=== PATIENT | female | born 1940 | race Caucasian/White ===

== ENCOUNTER 2016-11-27 11:47 | Inpatient (IN) | payer OTHER ==
[~2016-11-27] VITALS: Ht 160 cm; Wt 84.6 kg
[2016-11-27 13:03] LABS: BASO % 0.2 %; BASO ABS # 0.02 K/uL (0-0.2); COMPLETE YES; EOS % 0.7 %; IG% 0.2 %; LYMPH % 14.7 %; LYMPH ABS # 1.93 K/uL (1.2-3.4); MEAN CELL VOLUME 94.3 fL (80-100); MEAN CORPUSCULAR HGB CONC 32.9 g/dl (32-36); MEAN PLATELET VOLUME 11.1 fL (7.4-10.4); MONO % 4.8 %; NEUT % 79.4 %; PLATELET COUNT 247 K/uL (130-400); RED BLOOD COUNT 4.35 M/uL (4.2-5.4)
[2016-11-27 13:17] LABS: BUN/CREATININE RATIO 20.8 (10-20); CALCIUM 9.3 mg/dl (8.5-10.1); CREATININE 0.84 mg/dl (0.60-1.20); POTASSIUM 4.1 mmol/L (3.5-5.1)
--- NOTE | 2016-11-27 13:54 | DIAGNOSTIC IMAGING REPORT ---
CT ANGIOGRAM OF THE CHEST CLINICAL HISTORY: Right-sided chest pain, cough, tachycardia, recent 11 hour airplane flight. COMPARISON STUDY: No previous studies for comparison. TECHNIQUE: Following the IV administration of 93 mL of Optiray-320, CT angiogram of the thorax was performed from the thoracic inlet to the lung bases utilizing the pulmonary embolus protocol. Images are reviewed in the axial, sagittal, and coronal planes. IV contrast was administered without complication. MIP imaging was performed. CT DOSE: 413.04 mGycm FINDINGS: No pathologically enlarged axillary mediastinal or hilar lymph nodes were visualized. There was no evidence of thoracic aortic dilatation. There were no pulmonary artery filling defects to indicate acute pulmonary embolism. No pleural effusions are visualized. There was no evidence of focal pulmonary consolidation. IMPRESSION: 1. No CT evidence of acute pulmonary embolism 2. No evidence of focal pulmonary consolidation 3. No evidence of pathologic adenopathy Electronically signed by: Geovany Mendez M.D. 11/27/2016 1:53 PM Dictated Date/Time: 11/27/2016 1:47 PM
[2016-11-27] MEDS ORDERED: SODIUM CHLORIDE 0.9% 500ML 500 ML IV STA (14:10)
[2016-11-27 14:46] LABS: URINE APPEARANCE CLEAR (CLEAR); URINE BILIRUBIN NEG (NEG); URINE COLOR YELLOW; URINE NITRITE POS (NEG); URINE PH 6.5 (4.5-7.5); URINE SPECIFIC GRAVITY 1.017 (1.000-1.030); UROBILINOGEN NEG (NEG)
[2016-11-27 14:49] LABS: MANUAL MICROSCOPIC REQUIRED? NO; REVIEW REQ? NO
[2016-11-27] MEDS ORDERED: IMIPENEM/CILASTATIN IV 500 MG in DEXTROSE 5% 100ML 100 ML IV STA (14:59)
[2016-11-27 15:52] LABS: LYME DISEASE AB IGG NEG (NEG); LYME DISEASE AB IGM NEG (NEG)
--- NOTE | 2016-11-27 15:53 | EMERGENCY ROOM VISIT NOTE ---
History Report prepared by Brittani: Roxana Smith Under the Supervision of: Dr. Willi Toure M.D. First contact with patient: 12:11 Chief Complaint: IRREGULAR HEARTBEAT Stated Complaint: A-FIB Nursing Triage Summary: Patient presents via ambulance to room C12B with c/o irregular heartrate and cough Patient was seen this morning at the [facility] for evaluation of the cough and was found to have an irregular heartrate - possibly atrial fibrillation Patient returned on 11/21/16 from a month long cruise and reports that many of the passengers had a cough Patient has had a nonproductive cough for the last two weeks Denies fever or other symptoms History of Present Illness The patient is a 76 year old female who presents to the Emergency Room with complaints of an episode of irregular heartbeat this morning. She was sent to the ED from her doctor's office, who thought that she was in A fib. She denies feeling any palpitations currently, but states that she did feel abnormal at the office which she attributed to her cough at the time. She was at the doctor' s office for a persistent cough for the past 2 weeks. She also reports sore throat and sinus congestion. She has right rib pain which started 1.5 weeks ago. The pain worsens when she coughs and she states it feels sore. She otherwise denies any chest tightness or pressure. She has been having some SOB for the past couple of days. She notices it when she exerts herself walking uphill. She had some fever and woke up diaphoretic several nights ago. She denies any chest pain or pain and swelling in the legs. She has been traveling extensively to [place], [facility], and [place] in the past month. She returned home 6 days ago. She denies smoking. She denies any history of clots. She denies having any medical problems. She is not on any medications. Source of History: patient Onset: this morning Position: other (global) Quality: other (irregular heartbeat) Timing: other (episodic) Modifying Factors (Worsening): other (cough) Associated Symptoms: + SOB, + cough, + diaphoresis, + fevers, + sorethroat, No chest pain Note: Pt reports congestion, right rib pain. Pt denies swelling or pain in legs. Review of Systems See HPI for pertinent positives & negatives. A total of 10 systems reviewed and were otherwise negative. Past Medical & Surgical Medical Problems: (1) No Known Active Medical Problems Family History No pertinent family history stated. Social History Smoking Status: Never Smoker Marital Status: Occupation Status: retired Current/Historical Medications No Active Prescriptions or Reported Meds Allergies Coded Allergies: No Known Allergies (Unverified , 11/27/16) Physical Exam Vital Signs Date Time Temp Pulse Resp B/P Pulse Ox O2 Delivery O2 Flow Rate FiO2 11/27/16 14:34 110 20 134/83 97 Room Air 11/27/16 12:48 107 20 139/83 94 Room Air 11/27/16 12:40 107 11/27/16 12:00 97 Room Air 11/27/16 11:52 97 Room Air 11/27/16 11:52 36.6 112 20 118/90 97 Room Air Physical Exam Constitutional: Vital signs reviewed. Eyes: Pupils are equal round reactive to light. Conjunctiva are noninjected. ENT: Pharynx is clear without erythema or exudate. Mucous membranes are moist. Neck supple without meningeal signs. Respiratory: Clear to auscultation bilaterally. Breath sounds are equal bilaterally. Cardiovascular: Tachycardia, heart rate 111. GI: Soft, nondistended and nontender. Bowel sounds are present. Musculoskeletal: No peripheral edema. No lower extremity tenderness. Tenderness over the right anterior ribs without crepitus. Integumentary: No cyanosis. Neurological: The patient is awake and alert. No focal deficits. Psychiatric: Normal affect. Medical Decision & Procedures ER Provider Diagnostic Interpretation: Radiology results as stated below per my review and the radiologist's interpretation: CT ANGIOGRAM OF THE CHEST CLINICAL HISTORY: Right-sided chest pain, cough, tachycardia, recent 11 hour airplane flight. COMPARISON STUDY: No previous studies for comparison. TECHNIQUE: Following the IV administration of 93 mL of Optiray-320, CT angiogram of the thorax was performed from the thoracic inlet to the lung bases utilizing the pulmonary embolus protocol. Images are reviewed in the axial, sagittal, and coronal planes. IV contrast was administered without complication. MIP imaging was performed. CT DOSE: 413.04 mGycm FINDINGS: No pathologically enlarged axillary mediastinal or hilar lymph nodes were visualized. There was no evidence of thoracic aortic dilatation. There were no pulmonary artery filling defects to indicate acute pulmonary embolism. No pleural effusions are visualized. There was no evidence of focal pulmonary consolidation. IMPRESSION: 1. No CT evidence of acute pulmonary embolism 2. No evidence of focal pulmonary consolidation 3. No evidence of pathologic adenopathy Electronically signed by: Geovany Mendez M.D. 11/27/2016 1:53 PM Dictated Date/Time: 11/27/2016 1:47 PM Laboratory Results 11/27/16 12:40 Red Blood Count 4.35, Mean Corpuscular Volume 94.3, Mean Corpuscular Hemoglobin 31.0, Mean Corpuscular Hemoglobin Concent 32.9, Mean Platelet Volume 11.1, Neutrophils (%) (Auto) 79.4, Lymphocytes (%) (Auto) 14.7, Monocytes (%) (Auto) 4.8, Eosinophils (%) (Auto) 0.7, Basophils (%) (Auto) 0.2, Neutrophils # (Auto) 10.40, Lymphocytes # (Auto) 1.93, Monocytes # (Auto) 0.63, Eosinophils # (Auto) 0.09, Basophils # (Auto) 0.02 11/27/16 12:40 Test 11/27/16 12:30 11/27/16 12:40 11/27/16 12:46 11/27/16 12:47 Influenza Type A Antigen Neg for Influ A (NEG) Influenza Type B Antigen Neg for Influ B (NEG) White Blood Count 13.10 K/uL (4.8-10.8) Red Blood Count 4.35 M/uL (4.2-5.4) Hemoglobin 13.5 g/dL (12.0-16.0) Hematocrit 41.0 % (37-47) Mean Corpuscular Volume 94.3 fL (80-100) Mean Corpuscular Hemoglobin 31.0 pg (25-34) Mean Corpuscular Hemoglobin Concent 32.9 g/dl (32-36) Platelet Count 247 K/uL (130-400) Mean Platelet Volume 11.1 fL (7.4-10.4) Neutrophils (%) (Auto) 79.4 % Lymphocytes (%) (Auto) 14.7 % Monocytes (%) (Auto) 4.8 % Eosinophils (%) (Auto) 0.7 % Basophils (%) (Auto) 0.2 % Neutrophils # (Auto) 10.40 K/uL (1.4-6.5) Lymphocytes # (Auto) 1.93 K/uL (1.2-3.4) Monocytes # (Auto) 0.63 K/uL (0.11-0.59) Eosinophils # (Auto) 0.09 K/uL (0-0.5) Basophils # (Auto) 0.02 K/uL (0-0.2) RDW Standard Deviation 44.3 fL (36.4-46.3) RDW Coefficient of Variation 12.8 % (11.5-14.5) Immature Granulocyte % (Auto) 0.2 % Immature Granulocyte # (Auto) 0.03 K/uL (0.00-0.02) Prothrombin Time 11.0 SECONDS (9.0-12.0) Prothromb Time International Ratio 1.0 (0.9-1.1) Activated Partial Thromboplast Time 26.4 SECONDS (21.0-31.0) Partial Thromboplastin Ratio 1.0 Anion Gap 5.0 mmol/L (3-11) Est Creatinine Clear Calc Drug Dose 59.5 ml/min Estimated GFR () 77.2 Estimated GFR (Non- 66.6 BUN/Creatinine Ratio 20.8 (10-20) Calcium Level 9.3 mg/dl (8.5-10.1) Total Bilirubin 0.5 mg/dl (0.2-1) Direct Bilirubin 0.2 mg/dl (0-0.2) Aspartate Amino Transf (AST/SGOT) 20 U/L (15-37) Alanine Aminotransferase (ALT/SGPT) 34 U/L (12-78) Alkaline Phosphatase 84 U/L (45-117) Total Protein 8.0 gm/dl (6.4-8.2) Albumin 3.7 gm/dl (3.4-5.0) Monoscreen NEG (NEG) Bedside Troponin I 0.010 ng/ml (0-0.045) Bedside Lactic Acid Venous 1.07 mmol/L (0.90-1.70) Test 11/27/16 14:20 Urine Color YELLOW Urine Appearance CLEAR (CLEAR) Urine pH 6.5 (4.5-7.5) Urine Specific [place] 1.017 (1.000-1.030) Urine Protein NEG (NEG) Urine Glucose (UA) NEG (NEG) Urine Ketones TRACE (NEG) Urine Occult Blood NEG (NEG) Urine Nitrite POS (NEG) Urine Bilirubin NEG (NEG) Urine Urobilinogen NEG (NEG) Urine Leukocyte Esterase TRACE (NEG) Urine WBC (Auto) 1-5 /hpf (0-5) Urine RBC (Auto) 0-4 /hpf (0-4) Urine Hyaline Casts (Auto) 1-5 /lpf (0-5) Urine Epithelial Cells (Auto) 5-10 /lpf (0-5) Urine Bacteria (Auto) 4+ (NEG) Laboratory results as reviewed by me. Medications Administered Medications (Trade) Dose Ordered Sig/Layla Route Start Time Stop Time Status Last Admin Dose Admin Sodium Chloride 500 ml @ 999 mls/hr Q31M STAT IV 11/27/16 14:10 11/27/16 14:40 DC 11/27/16 14:47 999 MLS/HR Imipenem/ Cilastatin Sodium/ Dextrose (Primaxin Iv/D5 100ml) 110 ml @ 100 mls/hr NOW STAT IV 11/27/16 14:59 11/27/16 16:04 11/27/16 15:28 100 MLS/HR ECG Indication: tachycardia Rate (beats per minute): 101 Rhythm: sinus tachycardia Findings: PVC (frequent), Q waves (Inferior), no acute ischemic change, other ( low voltage QRS) Change: Repeat EKG: sinus tachycardia, rate 107, PVC, inferior Q waves. ED Course 1214: The patient was evaluated in room C12. A complete history and physical exam was performed. 1401: I reevaluated the patient. She is still tachycardic in the 120-130s. I discussed test results with her. She mentions that she had some blood in her urine during her cruise. A repeat EKG and catheterized urine specimen will be collected. 1410: NSS 500 ml @ 999 mls/hr IV. 1455: I reevaluated the patient. Her heart rate is now in the 90s. She states she feels washed out. I discussed the results and treatment plan with her. She verbalized understanding and agreement. She will be evaluated for further management. 1459: Imipenem/Cilastatin Sodium 500 mg/Dextrose 110 ml @ 100 mls/hr IV. 1501: I spoke with Dr. Murcia of [facility] hospitalist service. We discussed the patient and her results. The patient will be further evaluated by him. Medical Decision This is a 76-year-old female who presents with tachycardia, shortness of breath , right-sided chest pain and cough. Differential diagnosis includes pneumonia, pulmonary embolism, pleurisy, sepsis, UTI, influenza. I did perform a limited focused review of portions of the patient's old chart on the electronic medical record. The patient has had no prior visits. I did evaluate the patient as noted above. IV access was established. 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 I did order and personally review the patient's 12-lead EKG and chest x-ray as described above. The patient has sinus tachycardia with occasional PVCs. There is no evidence of atrial fibrillation. P waves are visible on the EKG. She was given normal saline IV. I did order and review the patient's blood work as noted in the electronic medical record. Her white count is elevated with a left shift. Lactic acid is not elevated. Monospot is negative. Rapid flu and strep test are negative. I did order a CT of the chest. I did review the images myself as well as the radiology report as described above. There is no evidence of pulmonary embolism or pneumonia. I did reassess the patient. She is persistently tachycardic with her heart rate going up to 130. She states she feels very washed out and fatigued. I did order a urinalysis as the patient mentioned that she had some hematuria 2 weeks ago and had some very minor urinary symptoms since. Urinalysis does show infection with bacteria, nitrates and leukocyte esterase. I did discuss the test results with the patient. I did recommend hospitalization for IV antibiotics for early sepsis. I did treat her with Primaxin IV. I did discuss the case with the hospitalist and caser. Consults Time Called: 1456 Consulting Physician: Dr. Murcia, [facility] - hosptialist Returned Call: 1501 I spoke with him. We discussed the patient and her results. The patient will be further evaluated by him. Impression Primary Impression: Sepsis Additional Impressions: UTI (urinary tract infection) Bronchitis Sinusitis Right-sided chest wall pain Scribe Attestation The scribe's documentation has been prepared under my direct and personally reviewed by me in its entirety. I confirm that the note above accurately reflects all work, treatment, procedures, and medical decision making performed by me. Departure Information Dispostion Being Evaluated By Hospitalist Prescriptions No Active Prescriptions or Reported Meds Patient Instructions [facility] Problem Qualifiers Primary Impression: Sepsis Sepsis type: sepsis due to unspecified organism Qualified Codes: A41.9 - Sepsis, unspecified organism Additional Impressions: UTI (urinary tract infection) Urinary tract infection type: site unspecified Hematuria presence: with hematuria Qualified Codes: N39.0 - Urinary tract infection, site not specified ; R31.9 - Hematuria, unspecified Sinusitis Sinusitis location: unspecified location Chronicity: acute Recurrence: not specified as recurrent Qualified Codes: J01.90 - Acute sinusitis, unspecified
--- NOTE | 2016-11-27 16:30 | Medical Student: [facility] ---
Med Student History & Physical Date & Time of Service: November 27, 2016 at 15:54 Chief Complaint: A-FIB Primary Care Physician: No Doctor, Assigned History of Present Illness Source: patient Ms Geri Vides is a pleasant 76 yo female with no pertinent past medical history who presents to the ED via her PCP with complaints of racing heart, SOB , cough, and R rib pain. She returned form a month-long cruise one week ago, and her symptoms began two weeks ago. Her cough began two weeks ago while in [facility]. It is non-productive but constant. She occasionally feels short of breath if carrying long She has tried using Vics rub, a cough syrup bought in [facility], and alicia- seltzer tablets. She states that her rib pain occurred suddenly after having the cough for several days. She denies falling or any trauma, but states she fractured four ribs several years ago when she fell off a horse. Her cough was the reason she saw her PCP this morning. While at her PCPs office, she was found to have a rapid heart rate, questionable a fib, and was sent via ambulance from [facility] to the ED. Since arrival at the ED, her hr has been consistently above 100, often in the 120s. While speaking with her, it did drop to the 90s for a period of about 30 seconds, but rapidly increased to 120s again during auscultation. She states the racing heart rate often coincides with an urge to cough. Upon arrival to the ED, she was found to have an UTI. She states she had one evening of dysuria while on the cruise ship but her sx quickly resolved. She denies nausea, vomiting, fever, chills, headache, LoC, chest pain, chest pressure, diarrhea or constipation. Past Medical/Surgical History Medical Problems: (1) Bronchitis Status: Acute (2) Right-sided chest wall pain Status: Acute (3) Sepsis Status: Acute (4) Sinusitis Status: Acute (5) UTI (urinary tract infection) Status: Acute Social History Smoking Status: Never Smoker Smokeless Tobacco Use: No Alcohol Use: none Drug Use: none Marital Status: Housing status: lives alone Occupational Status: retired Allergies Coded Allergies: No Known Allergies (Unverified , 11/27/16) Medications No Active Prescriptions or Reported Meds Review of Systems Constitutional: + fatigue (with carrying laundry up steps) Eyes: No problem reported ENT: + sore throat Respiratory: + cough, + dyspnea on exertion, + shortness of breath, No dyspnea at rest, No hemoptysis Cardiovascular: + palpitations, No PND, No chest pain, No claudication, No edema, No orthopnea Musculoskeletal: No problem reported Genitourinary - Female: + dysuria (two weeks ago), + urinary incontinence ( stress incontinence with cough) Neurologic: No problem reported Psychiatric: No problem reported Endocrine: No problem reported Integumentary: No problem reported Allergic / Immunologic: + environmental allergies, + seasonal allergies Physical Exam Vital Signs (24 Hours) Date Time Temp Pulse Resp B/P Pulse Ox O2 Delivery O2 Flow Rate FiO2 11/27/16 14:34 110 20 134/83 97 Room Air 11/27/16 12:48 107 20 139/83 94 Room Air 11/27/16 12:40 107 11/27/16 12:00 97 Room Air 11/27/16 11:52 97 Room Air 11/27/16 11:52 36.6 112 20 118/90 97 Room Air General Appearance: WD/WN, no apparent distress Head: normocephalic, atraumatic Eyes: normal inspection, PERRL, EOMI, sclerae normal ENT: hearing grossly normal, + pertinent finding (deviated septum, no tenderness to ) Neck: supple, no adenopathy, thyroid normal, no JVD, no carotid bruits Respiratory/Chest: lungs clear, normal breath sounds, no respiratory distress, no accessory muscle use, + pertinent finding (tenderness of chest wall under R breast, midaxillary line) Cardiovascular: no edema, no gallop, no JVD, no murmur, normal peripheral pulses, + tachycardia, + irregularly irregular Abdomen/GI: normal bowel sounds, non tender, soft, no organomegaly, no pulsatile mass Back: normal inspection, no CVA tenderness, no muscle spasm, normal range of motion Extremities/Musculoskelatal: normal inspection, no calf tenderness, normal capillary refill, no pedal edema, non-tender 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, no motor/sensory deficits, alert, normal mood/affect, oriented x 3 Skin: normal color, warm/dry Diagnostics Laboratory Results Results Past 24 Hours Test 11/27/16 12:30 5/12/17 12:40 11/27/16 12:46 11/27/16 12:47 Range/Units Influenza Type A Antigen Neg for Influ A NEG Influenza Type B Antigen Neg for Influ B NEG White Blood Count 13.10 4.8-10.8 K/uL Red Blood Count 4.35 4.2-5.4 M/uL Hemoglobin 13.5 12.0-16.0 g/dL Hematocrit 41.0 37-47 % Mean Corpuscular Volume 94.3 80-100 fL Mean Corpuscular Hemoglobin 31.0 25-34 pg Mean Corpuscular Hemoglobin Concent 32.9 32-36 g/dl Platelet Count 247 130-400 K/uL Mean Platelet Volume 11.1 7.4-10.4 fL Neutrophils (%) (Auto) 79.4 % Lymphocytes (%) (Auto) 14.7 % Monocytes (%) (Auto) 4.8 % Eosinophils (%) (Auto) 0.7 % Basophils (%) (Auto) 0.2 % Neutrophils # (Auto) 10.40 1.4-6.5 K/uL Lymphocytes # (Auto) 1.93 1.2-3.4 K/uL Monocytes # (Auto) 0.63 0.11-0.59 K/uL Eosinophils # (Auto) 0.09 0-0.5 K/uL Basophils # (Auto) 0.02 0-0.2 K/uL RDW Standard Deviation 44.3 36.4-46.3 fL RDW Coefficient of Variation 12.8 11.5-14.5 % Immature Granulocyte % (Auto) 0.2 % Immature Granulocyte # (Auto) 0.03 0.00-0.02 K/uL Prothrombin Time 11.0 9.0-12.0 SECONDS Prothromb Time International Ratio 1.0 0.9-1.1 Activated Partial Thromboplast Time 26.4 21.0-31.0 SECONDS Partial Thromboplastin Ratio 1.0 Sodium Level 140 136-145 mmol/L Potassium Level 4.1 3.5-5.1 mmol/L Chloride Level 106 98-107 mmol/L Carbon Dioxide Level 29 21-32 mmol/L Anion Gap 5.0 3-11 mmol/L Blood Urea Nitrogen 17 7-18 mg/dl Creatinine 0.84 0.60-1.20 mg/dl Est Creatinine Clear Calc Drug Dose 59.5 ml/min Estimated GFR () 77.2 Estimated GFR (Non- 66.6 BUN/Creatinine Ratio 20.8 10-20 Random Glucose 103 70-99 mg/dl Calcium Level 9.3 8.5-10.1 mg/dl Total Bilirubin 0.5 0.2-1 mg/dl Direct Bilirubin 0.2 0-0.2 mg/dl Aspartate Amino Transf (AST/SGOT) 20 15-37 U/L Alanine Aminotransferase (ALT/SGPT) 34 12-78 U/L Alkaline Phosphatase 84 45-117 U/L Total Protein 8.0 6.4-8.2 gm/dl Albumin 3.7 3.4-5.0 gm/dl Lyme Disease IgG Antibody NEG NEG Lyme Disease IgM Antibody NEG NEG Monoscreen NEG NEG Bedside Troponin I 0.010 0-0.045 ng/ml Bedside Lactic Acid Venous 1.07 0.90-1.70 mmol/L Test 11/27/16 14:20 Range/Units Urine Color YELLOW Urine Appearance CLEAR CLEAR Urine pH 6.5 4.5-7.5 Urine Specific [place] 1.017 1.000-1.030 Urine Protein NEG NEG Urine Glucose (UA) NEG NEG Urine Ketones TRACE NEG Urine Occult Blood NEG NEG Urine Nitrite POS NEG Urine Bilirubin NEG NEG Urine Urobilinogen NEG NEG Urine Leukocyte Esterase TRACE NEG Urine WBC (Auto) 1-5 0-5 /hpf Urine RBC (Auto) 0-4 0-4 /hpf Urine Hyaline Casts (Auto) 1-5 0-5 /lpf Urine Epithelial Cells (Auto) 5-10 0-5 /lpf Urine Bacteria (Auto) 4+ NEG Microbiology Results 11/27/16 Parasitology Test - Preliminary, Resulted 11/27/16 Blood Culture, Received Pending 11/27/16 Group A Streptococcus Screen - Final, Resulted SPECIMEN NEGATIVE FOR GROUP A BETA ST... 11/27/16 Group A Streptococcus Screen (JUAN J), Resulted Pending 11/27/16 Urine Culture, Received Pending Diagnostic Radiology Chest CTA- Normal. No DVT EKG ECG: Tachycardia with irregularly irregular rhythm. Questionable afib vs. frequent pvc runs. Impression Assessment and Plan Ms Geri Vides is a pleasant 76 yo female with tachycardia, persistent cough with SOB, a UTI, and rib pain. Individual assessment and plan is as follows: 1. Tachycardia: Ddx includes afib vs pvc runs. Will repeat ECG q 2 hours. Consult cardiology. Will start on 10mg propranolol tid. Will check TSH. 2. UTI: Asymptomatic x 2 weeks. Currently started on imipenem, will switch to ciprofloxacin, pending culture sensitivity. 3. Cough: Likely URI with cough caused by post-nasal drip. Do not suspect pneumonia or bronchitis, as lungs are clear. Discussed Mucinex upon discharge, will start Mucinex now. Recommend nasal saline spray at home too. 4. R rib pain: CT does not show fracture, likely intercostal strain due to strong coughing. Encouraged to use warm compress at home. Pt does not want analgesia now. 5. DVT prophylaxis: Heparin. 6. Disposition: Admit to tele. Normal diet. Level of Care Telemetry Resuscitation Status FULL RESUSCITATION DVT Prophylaxis unfractionated heparin SQ
--- NOTE | 2016-11-27 17:12 | Progress Note ---
Progress Note Date of Service November 27, 2016. Progress Note possibel afib, uti, sinusitis, [id number]
--- NOTE | 2016-11-27 17:48 | HISTORY & PHYSICAL EXAMINATION ---
DATE OF ADMISSION: 11/27/2016 This is a level 3 inpatient admission, 35 minutes. CHIEF COMPLAINT: Racing heart and difficulty breathing and cough and rib pain. HISTORY OF PRESENT ILLNESS: The patient is a 76-year-old white female with a significant past medical history of bronchitis, sinusitis, UTI, comes to the hospital Emergency Department because of the above chief complaint. The patient reports she sent to the hospital by the PCP's office. 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 Symptoms is getting worse, which include racing heart, shortness of breath and cough and the right rib pain. The patient reported she may have some postnasal drip and cough with yellow green sputum. feeling has been shortness of breath. She was trying some cough syrups with no help. Has been having for several days associated with some rib pain. In the PCP's office, she was found to have rapid heart rate, questionable aFib. Therefore, she was sent to the Emergency Room. In ED, had 2 EKG studies, to me possible is AFib, heart rate was at 130s when she up to the restroom. In the ED, she was found to have UTI as well. REVIEW OF SYSTEMS: The patient denied fever or chills. Denied lower extremity swelling. Denied nausea, vomiting, abdominal pain, diarrhea, or constipation. Denied dysuria, urgency and frequencies. Denied facial droop, slurry speeches or local weakness. Otherwise, 14 points organ system review was negative. PAST MEDICAL HISTORY: No known active past medical history. SOCIAL HISTORY: Never smoked. Denied alcohol abuse disorder, denied illicit drug abuse. FAMILY HISTORY: Noncontributory. CURRENT MEDICATIONS: None. ALLERGIES: No known drug allergy. PHYSICAL EXAMINATION: VITAL SIGNS: Temperature is 36.6, pulse 112, respiratory rate 20, osat 97% in room air. GENERAL: The patient is white female, pleasant, awake, alert and orientated, conversational, follows all commands. HEAD: Normocephalic. EYES: Pupils equal, round responds to light. EARS: Normal. NOSE: Normal. NECK: Supple. Thyroid no enlargement. Trachea in midline. HEART: Irregularly irregular, S1, S2. Heart rate up to 120s. No murmurs. ABDOMEN: Soft, nontender. Bowel sound was positive. GENITOURINARY AND RECTAL: Deferred. EXTREMITIES: Bilateral lower extremity, no swelling. Homans sign was negative. Calves were nontender. NEUROLOGICAL EVALUATION: Cranial nerves II-XII was intact. There were no neurological deficits. PSYCHIATRIC EVALUATION: Normal. LABORATORY STUDIES: WBC 13, hemoglobin 13, platelet 247. PT/INR was 11/1. Sodium 140, potassium 4.1, BUN 17, creatinine 0.8, random blood glucose 103. Liver function test was within normal limits. TSH is pending. UA shows positive UTI. IMAGING STUDIES: Chest CT studies - there was no evidence of PE. No evidence of pulmonary consolidations or pathologic adenopathies. Like I mentioned, EKG was done x2. There was undetermined rhythm, to me it seems like has aFib. There was no obvious P waves or sinus tachycardia. ASSESSMENT AND PLAN: A 76-year-old white female with the problems below: 1. Tachycardia with irregular heart beating. Likely has atrial fibrillation. We will give beta angelika for now. We are doing echocardiogram, check TSH levels. Cardiology consultation. Need to have further evaluation for the atrial fibrillation if needed, and evaluation for the CHADS2 scores to start stroke prevention if needed. 2. Urinary tract infection, tachycardia, leukocytosis, possibly has mild sepsis. We will continue antibiotics. I will give Rocephin for the urinary tract infection, possible mild sepsis. We will need to follow up culture and sensitivities and then go from there. Urine culture and blood culture was sent. 3. Rib pain. CT does not show any rib fracture and there was no any skin rashes. Will continue to watch. 4. Gastrointestinal and deep vein thrombosis prophylaxis is covered. Discussed with patient about the care plan. I answered all the questions. MARLEEN
[2016-11-27 18:21] VITALS: BP 144/91; PULSE 103; TEMP 36.6; O2SAT 97; Ht 160 cm; Wt 84.6 kg
[2016-11-27 20:24] VITALS: BP 130/92; PULSE 137; TEMP 37; O2SAT 98
[2016-11-27] MEDS: CEFTRIAXONE SOD INJ 1 GM in DEXTROSE 5% ADD-VANTAGE 50ML 50 ML IV SCH (20:40)
[2016-11-27] MEDS: METOPROLOL TARTRATE 25 MG TAB PO SCH (20:42)
[2016-11-27] MEDS: HEPARIN SOD 5000 UNIT/0.5 ML CARP SQ SCH (20:44)
[2016-11-28] VITALS (9 sets, daily range): BP systolic 119–135; BP diastolic 71–87; PULSE 80–94; TEMP 36.4–37; O2SAT 94–97
[2016-11-28 07:00] LABS: BASO % 0.2 %; BASO ABS # 0.02 K/uL (0-0.2); COMPLETE YES; EOS % 1.5 %; HEMATOCRIT 39.8 % (37-47); IG% 0.2 %; LYMPH % 21.4 %; MEAN CELL VOLUME 94.1 fL (80-100); MEAN CORPUSCULAR HEMOGLOBIN 30.7 pg (25-34); MEAN CORPUSCULAR HGB CONC 32.7 g/dl (32-36); MEAN PLATELET VOLUME 10.7 fL (7.4-10.4); MONO % 7.7 %; PLATELET COUNT 211 K/uL (130-400); RED BLOOD COUNT 4.23 M/uL (4.2-5.4); WHITE BLOOD COUNT 9.35 K/uL (4.8-10.8)
[2016-11-28 07:34] LABS: BUN/CREATININE RATIO 17.5 (10-20); CREATININE 0.77 mg/dl (0.60-1.20); MAGNESIUM 2.5 mg/dl (1.8-2.4); POTASSIUM 3.9 mmol/L (3.5-5.1)
[2016-11-28 07:35] LABS: PHOSPHORUS 3.4 mg/dl (2.5-4.9)
[2016-11-28] MEDS ORDERED: COUGH DROP (SUGAR FREE) LOZ 24 LOZ/1 BOX ONE (07:56)
[2016-11-28] MEDS: METOPROLOL TARTRATE 25 MG TAB PO SCH ×2 (07:59→20:32)
[2016-11-28] MEDS: PANTOprazole SOD 40 MG TAB PO SCH (08:00)
[2016-11-28] MEDS: HEPARIN SOD 5000 UNIT/0.5 ML CARP SQ SCH ×2 (08:02→20:38)
[2016-11-28] MEDS ORDERED: SODIUM CHLORIDE 0.65% NA SOLN 45 ML (OCEAN) PRN (12:15)
--- NOTE | 2016-11-28 12:30 | ECHOCARDIOGRAM REPORT ---
*NOTICE TO RECEIVING CONSTITUTION PARTY AGENCY This information is strictly Confidential and protected under [place] law. [place] law prohibits you from making any further disclosure of this information unless further disclosure is expressly permitted by the written consent of the person to whom it pertains or is authorized by law. A general authorization for the release of medical or other information is not sufficient for this purpose. Hospital accepts no responsibility if the information is made available to any other person, INCLUDING THE PATIENT. Interpretation Summary * Name: MAY JOHNSON Study Date: 11/28/2016 09:38 AM BP: 135/72 mmHg * Patient Location: .2E\S\E211\S\1 HR: 80 * : 1940 (M/d/yyyy) Gender: Female Height: 63 in * Age: 76 yrs Ethnicity: [place] Weight: 199 lb * Ordering Physician: Carroll Murcia * Referring Physician: No Doctor, Assigned * Performed By: Wanda Davis RDCS * * Reason For Study: POSSIBLE AFIB * BSA: 1.9 m2 * -- Conclusions -- * There is mild asymmetric left ventricular hypertrophy. * Left ventricular systolic function is normal. * Grade I diastolic dysfunction, (abnormal relaxation pattern). * The left atrium is mildly dilated. Procedure Details * A complete two-dimensional transthoracic echocardiogram was performed (2D, M-mode, Doppler and color flow Doppler). Left Ventricle * The left ventricle is normal in size. * There is mild asymmetric left ventricular hypertrophy. * Ejection Fraction = 50-55%. * Left ventricular systolic function is normal. * Grade I diastolic dysfunction, (abnormal relaxation pattern). * The left ventricular wall motion is normal at rest. Right Ventricle * The right ventricle is normal in size and function. Atria * The left atrium is mildly dilated. * Right atrial size is normal. Mitral Valve * The mitral valve is grossly normal. * Significant mitral regurgitation is absent. Tricuspid Valve * The tricuspid valve anatomy is normal. * There is trace tricuspid regurgitation. Aortic Valve * The aortic valve is not well visualized. * No hemodynamically significant valvular aortic stenosis. * There is no significant aortic regurgitation. Pericardium/Pleural * Prominent pericardial fat pad * There is no pericardial effusion. MMode 2D Measurements and Calculations IVSd 1.5 cm IVSs 1.9 cm LVIDd 3.9 cm LVIDs 2.9 cm LVPWd 0.80 cm LVPWs 0.95 cm IVS/LVPW 1.8 FS 27.2 % EDV(Teich) 67.7 ml ESV(Teich) 31.4 ml EF(Teich) 53.6 % EDV(cubed) 61.3 ml ESV(cubed) 23.6 ml EF(cubed) 61.5 % % IVS thick 30.2 % % LVPW thick 19.6 % LV mass(C)d 149.1 grams LV mass(C)dI 77.2 grams/m\S\2 LV mass(C)s 138.2 grams LV mass(C)sI 71.6 grams/m\S\2 SV(Teich) 36.3 ml SI(Teich) 18.8 ml/m\S\2 SV(cubed) 37.7 ml SI(cubed) 19.5 ml/m\S\2 LVAd ap4 25.8 cm\S\2 LVLd ap4 8.1 cm EDV(MOD-sp4) 67.9 ml LVAs ap4 16.2 cm\S\2 LVLs ap4 7.1 cm ESV(MOD-sp4) 32.1 ml EF(MOD-sp4) 52.7 % LVAd ap2 22.4 cm\S\2 LVLd ap2 8.2 cm EDV(MOD-sp2) 52.2 ml LVAs ap2 13.0 cm\S\2 LVLs ap2 6.8 cm ESV(MOD-sp2) 22.4 ml EF(MOD-sp2) 57.1 % SV(MOD-sp4) 35.8 ml SI(MOD-sp4) 18.6 ml/m\S\2 SV(MOD-sp2) 29.8 ml SI(MOD-sp2) 15.4 ml/m\S\2 Doppler Measurements and Calculations MV E max john 67.9 cm/sec MV A max john 104.8 cm/sec MV E/A 0.65 MV dec time 0.12 sec Ao V2 max 119.4 cm/sec Ao max PG 5.7 mmHg Ao max PG (full) 3.2 mmHg LV V1 max PG 2.5 mmHg LV V1 max 79.1 cm/sec
[2016-11-28] MEDS ORDERED: FEXOFENADINE HCL 60 MG TAB PO ONE (13:00)
[2016-11-28] MEDS: TRIAMCINOLONE ACET NASAL SPRAY 10.8ML BTL NAE SCH (13:39)
[2016-11-28] MEDS: GUAIFENESIN 600 MG TABCR PO SCH ×2 (13:40→20:31)
[2016-11-28] MEDS: BENZONATATE 100MG CAP PO SCH ×2 (13:41→20:32)
--- NOTE | 2016-11-28 15:06 | CARDIOLOGY CONSULTATION ---
DATE OF CONSULTATION: 11/28/2016 DATE OF CONSULTATION: 11/28/2016. REFERRING PHYSICIAN: Carroll Murcia. CHIEF COMPLAINT: Tachycardia. HISTORY OF PRESENT ILLNESS: Ms. Geri Vides is a 76-year-old woman without a significant cardiac history who recently returned from an extended cruise to the [facility]. The patient noted during the later portion of her vacation development of nonproductive cough, states that she had tried some local remedies such as cough syrup but this did not alleviate her symptoms. When she returned to the [facility] one of her friends was going to the medical clinic and she thought she would accompany her in order to have this cough evaluated. At the doctor's office she was noted to have an elevated heart rate and sent to the Emergency Room for evaluation where initial EKG suggested atrial fibrillation. The patient was subsequently admitted for observation overnight. Additional complaints included development of right-sided chest discomfort that was worse with coughing. She denies significant shortness of breath but had some difficulty with taking a deep breath due to the nature of her cough. She was unaware of any palpitations. She was unaware of any higher heart rates. She does not report any significant dizziness or lightheadedness. Overall, she is able to complete her usual activities without significant limiting symptoms. 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 This is due primarily to lack of energy and no additional symptoms. She denies exertional chest pain or exertional dyspnea. 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 PAST MEDICAL HISTORY: Significant only for hysterectomy. No history of diabetes or hypertension. OUTPATIENT MEDICATIONS: None. MEDICAL ALLERGIES: No known medical allergies. FAMILY HISTORY: Noncontributory. No premature coronary disease. 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 She is a lifelong nonsmoker and denies significant alcohol use. Currently lives independently. REVIEW OF SYSTEMS: A complete 10-system review of systems was performed and the pertinent positives noted in the history of present illness, remainder being negative. PHYSICAL EXAMINATION: GENERAL: The patient did not appear to be any acute distress. She was alert and oriented, mood and affect appeared normal. She answered all questions appropriately. VITAL SIGNS: Include blood pressure 135/72 with a pulse of 80. HEAD, EYES, EARS, NOSE, AND THROAT: Her sclerae are anicteric. Pupils equal, reactive to light and accommodation. Extraocular movements were intact. Palpation of submandibular region did not reveal any significant lymphadenopathy. The carotids are palpable bilaterally. There are no bruits on auscultation. I did not appreciate any jugular venous distention. Thyroid is not enlarged. Auscultation of both lung santillan reveal them to be clear. There were no rales, wheezes or rhonchi. I did not appreciate any use of accessory muscles. She had normal respiratory effort. CARDIAC: Auscultation revealed her to be in a regular rhythm with occasional ectopy. S1, S2 appear to be normal. I did not appreciate any murmurs. PMI was not markedly displaced. EXTREMITIES: Evaluation of both wrists revealed radial pulses that were equal in intensity. There is no evidence of cyanosis or clubbing. Evaluation of lower extremities did not reveal any significant peripheral edema. I did not appreciate any rashes on exam today. The patient underwent CT angiography in order to exclude pulmonary embolism. There was no pulmonary embolus or evidence of pneumonia. The patient had serial EKGs performed which revealed her to be in a sinus rhythm and occasional PVCs and PACs. LABORATORY STUDIES: Obtained since admission include a white cell count 9.5, a hemoglobin of 13 and a platelet count of 211. Sodium is 142, potassium is 3.9, BUN was 13. Creatinine was 0.7. Point of care troponin was normal. TSH was normal. Echocardiogram is pending at the time of this dictation. ASSESSMENT AND PLAN: Atrial tachycardia. Review of the patient's EKGs and her telemetry reveals evidence of intermittent atrial tachycardia. This is an ectopic atrial rhythm that does not produce symptoms but heart rates in the 120 range. This is not atrial fibrillation. The chronicity of this arrhythmia is unknown. The patient has no symptoms or history of palpitations and this may have been occurring for an extended period of time. In the absence of symptoms the only real concern are extended periods of tachycardia which may produce reduction in LV function. We will assess her echocardiogram prior to making definitive recommendation but at this point, I suspect this can be treated conservatively. This may have simply been an incidental finding in the setting of a bronchitis. She has been started on low dose beta angelika which would seem reasonable. I would switch her to daily oral agent and perhaps consider outpatient monitoring for overall burden of atrial tachycardia and to better assess her heart rates over that period of time on therapy. In the absence of any concerning echocardiographic findings, no additional evaluation is required. FINAL RECOMMENDATIONS: 1. Pending final review of echocardiogram, continue daily beta angelika. 2. Outpatient Holter monitoring on therapy. 3. Follow up in cardiology clinic for evaluation afterwards.
[2016-11-28] MEDS ORDERED: SALI0.6510 (17:31)
[2016-11-28] MEDS ORDERED: LPR25 PO (17:31)
[2016-11-28] MEDS ORDERED: ALL60 PO (17:31)
[2016-11-28] MEDS ORDERED: BENZ100C7 PO (17:31)
[2016-11-28] MEDS ORDERED: TRIA1SPR4 NAE (17:31)
[2016-11-28] MEDS ORDERED: GFNSR600 PO (17:31)
--- NOTE | 2016-11-28 17:41 | Discharge Instructions ---
Discharge Instructions Date of Service November 28, 2016. Admission Reason for Admission: Rapid heart rate, UTI (urinary tract infection), Sinusitis Discharge Discharge Diagnosis / Problem: 1. atrial tachycardia (not a. fib) 2. sinus infection 3. UTI 4. phlebitis Discharge Goals Goal(s): Learn about illness, Diagnostic testing, Therapeutic intervention Activity Recommendations Activity Limitations: resume your previous activity (as tolerated as you recover from your illness) . Instructions / Follow-Up Instructions / Follow-Up From Dr. Najera - 1. Sinus infection - Take the following medications - * zackery 60mg twice a day (or you can take the once daily formulation which is 180mg -- your choice) - this can be obtained [id number] * nasal saline spray as needed - also [id number] * nasacort 2 sprays in each nostril daily - given by Rubens Walters to you at discharge * mucinex 1200mg up to twice a day - this can be obtained [id number] * tessalon pearles (this is prescription) - 100mg every 8 hours as needed for cough * antibiotic - ceftin 500mg twice daily for 8 more days; start this TONIGHT 2. Urinary tract infection - * the ceftin being used for the sinus infection will be adequate for the urine infection 3. rapid heart rate / palpitations - * the power transformer repair supervisor saw you for this problem and you appear to have "atrial tachycardia" * atrial tachycardia is a rapid rhythm from the top portion of your heart * it does not require blood thinners * please take metoprolol 25mg twice a day for this condition * Dr. Freitas would like to see you in his clinic in the next couple of weeks to perform more testing 4. Please AVOID any decongestants (zackery-D, zyrtec-D, sudafed, pseudoephedrine, etc) as decongestants can make the rapid heart rate WORSE. AVOID excessive amounts of caffeine as caffeine can make the rapid heart rate issue worse. 1-2 cups of coffee/day are acceptable. 5. Your sinus infection will take several days to clear. The cough will be the last symptom to resolve. The cough could potentially last another week or two. Please see your family doctor THIS WEEK to ensure all of the above issues are improving. 6. Headache and rib pain - * These are related to your respiratory illness and sinus infection * [id number] motrin and/or tylenol are fine to take for these symptoms 7. superficial phlebitis - * this is in the right elbow region * this occurred as a result of your IV * phlebitis is inflammation of the vein; it is typically not an infection; you will feel warmth and some mild redness around the area that is swollen * please take aspirin 325mg twice daily for 7 days; take with food * also put warm compresses on the area as much as possible for the next week ( but especially the next few days) * take omeprazole 40mg once daily for 10 days to protect your stomach against the effects of aspirin 8. Return to [facility] if - * you experience shortness of breath * you experience rapid heart rate / palpitations that persist or worsen * you have persistent fevers of 100.5 degrees or more * your cough worsens despite antibiotics and your cough medications * you have any chest pain, especially in the center of your chest * your right elbow starts to look worse, becomes more painful, etc See Dr. Martinez THIS WEEK (ideally within 2-3 days) for all of the issues addressed while hospitalized Current Hospital Diet Patient's current hospital diet: AHA Diet (Heart Healthy) Discharge Diet Recommended Diet: Regular Diet Procedures Procedures Performed: 1. CAT scan of the lungs - NO pneumonia, NO blood clots, NO tumors. 2. echocardiogram - normal heart function, normal valve function. Pending Studies Studies pending at discharge: yes List of pending studies: Final urine culture result. Medical Emergencies . Who to Call and When: Medical Emergencies: If at any time you feel your situation is an emergency, please call 911 immediately. . Non-Emergent Contact Non-Emergency issues call your: Primary Care Provider Call Non-Emergent contact if: temperature is above 100.5, you have any medication questions . . "Provider Documentation" section prepared by Arben Najera. . VTE Core Measure Inpt VTE Proph given/why not?: Unfractionated heparin SQ
[2016-11-28] MEDS: CEFTRIAXONE SOD INJ 1 GM in DEXTROSE 5% ADD-VANTAGE 50ML 50 ML IV SCH (18:24)
[2016-11-28] MEDS: FEXOFENADINE HCL 60 MG TAB PO SCH (20:32)
[2016-11-29 00:14] VITALS: BP 135/86; PULSE 74; TEMP 37; O2SAT 95
--- NOTE | 2016-11-29 00:20 | Progress Note ---
Subjective Date of Service: November 28, 2016. Subjective Pt evaluation today including: conversation w/ patient, physical exam, chart review, lab review, review of studies (echo, CT chest ), conversation w/ sap business intelligence consultant (cardiology), review of inpatient medication list Pain: headache - frontal PO Intake: fair Voiding: no voiding problems tele overnight - some episodes of atrial tach otherwise NSR has had sinus and URI symptoms for 2 weeks; developed these symptoms while traveling [place] denies any fever eyes are bothersome and she has nasal congestion denies any sob Problem List Medical Problems: (1) Bronchitis Status: Acute (2) Right-sided chest wall pain Status: Acute (3) Sepsis Status: Acute (4) Sinusitis Status: Acute (5) UTI (urinary tract infection) Status: Acute Review of Systems Constitutional: No chills, No fever Respiratory: + cough, No dyspnea on exertion, No shortness of breath Cardiac: No chest pain Abdomen: No pain Female : No dysuria Objective Vital Signs Date Time Temp Pulse Resp B/P Pulse Ox O2 Delivery O2 Flow Rate FiO2 11/29/16 00:01 Room Air 11/28/16 20:08 36.9 90 20 119/81 94 Room Air 11/28/16 20:00 Room Air 11/28/16 17:03 37.0 90 20 135/87 97 Room Air 11/28/16 16:00 95 Room Air 11/28/16 12:22 36.9 94 20 121/83 95 Room Air 11/28/16 12:00 94 Room Air 11/28/16 08:00 95 Room Air 11/28/16 07:17 36.4 80 20 135/72 96 Room Air 11/28/16 04:10 36.8 93 17 134/71 95 Room Air 11/28/16 04:00 Room Air 11/28/16 00:17 37.0 89 18 135/72 95 Room Air Physical Exam General Appearance: no apparent distress, + pertinent finding (coughing ) ENT: + nasal drainage, + pharyngeal erythema Neck: no JVD Respiratory/Chest: lungs clear, no respiratory distress, no accessory muscle use Cardiovascular: regular rate, rhythm, no gallop, no murmur Abdomen: normal bowel sounds, non tender, soft, no organomegaly Extremities: no pedal edema Neurologic/Psychiatric: alert, oriented x 3 Laboratory Results Last 24 Hours Test 11/28/16 06:37 White Blood Count 9.35 K/uL Red Blood Count 4.23 M/uL Hemoglobin 13.0 g/dL Hematocrit 39.8 % Mean Corpuscular Volume 94.1 fL Mean Corpuscular Hemoglobin 30.7 pg Mean Corpuscular Hemoglobin Concent 32.7 g/dl Platelet Count 211 K/uL Mean Platelet Volume 10.7 fL Neutrophils (%) (Auto) 69.0 % Lymphocytes (%) (Auto) 21.4 % Monocytes (%) (Auto) 7.7 % Eosinophils (%) (Auto) 1.5 % Basophils (%) (Auto) 0.2 % Neutrophils # (Auto) 6.45 K/uL Lymphocytes # (Auto) 2.00 K/uL Monocytes # (Auto) 0.72 K/uL Eosinophils # (Auto) 0.14 K/uL Basophils # (Auto) 0.02 K/uL RDW Standard Deviation 44.6 fL RDW Coefficient of Variation 12.9 % Immature Granulocyte % (Auto) 0.2 % Immature Granulocyte # (Auto) 0.02 K/uL Sodium Level 142 mmol/L Potassium Level 3.9 mmol/L Chloride Level 107 mmol/L Carbon Dioxide Level 28 mmol/L Anion Gap 7.0 mmol/L Blood Urea Nitrogen 13 mg/dl Creatinine 0.77 mg/dl Est Creatinine Clear Calc Drug Dose 62.1 ml/min Estimated GFR () 85.7 Estimated GFR (Non- 74.0 BUN/Creatinine Ratio 17.5 Random Glucose 101 mg/dl Calcium Level 9.0 mg/dl Phosphorus Level 3.4 mg/dl Magnesium Level 2.5 mg/dl Assessment and Plan 76yo female - 1. atrial tach - discussed tele findings w/ patient. continue beta angelika. echo with structurally normal heart. appreciate Dr. Freitas's consultation. will have outpatient follow-up with him and probably holter. 2. UTI - e. coli - cont rocephin, await final cx. 3. suspected acute sinusitis - CTA chest w/o signs of pneumonia. Cont rocephin, transition to oral abx in am. add zackery, nasonex, nasal saline, and mucinex. tessalon TID. 4. DVT proph - heparin. 5. rib pain - likely due to coughing. PRN pain meds. CTA chest w/o rib fracture or other pathology. anticipate d/c in AM Discharge planning: home
[2016-11-29 04:14] VITALS: BP 138/87; PULSE 82; TEMP 37; O2SAT 97
[2016-11-29 06:54] LABS: BASO % 0.3 %; BASO ABS # 0.02 K/uL (0-0.2); COMPLETE YES; EOS % 2.7 %; HEMATOCRIT 41.3 % (37-47); IG% 0.1 %; LYMPH % 24.8 %; MEAN CELL VOLUME 94.5 fL (80-100); MEAN CORPUSCULAR HEMOGLOBIN 30.2 pg (25-34); MEAN PLATELET VOLUME 11.4 fL (7.4-10.4); MONO % 7.8 %; NEUT % 64.3 %; PLATELET COUNT 215 K/uL (130-400); RED BLOOD COUNT 4.37 M/uL (4.2-5.4); WHITE BLOOD COUNT 7.67 K/uL (4.8-10.8)
[2016-11-29 07:32] LABS: BUN/CREATININE RATIO 22.7 (10-20); CREATININE 0.78 mg/dl (0.60-1.20); MAGNESIUM 2.6 mg/dl (1.8-2.4); PHOSPHORUS 3.4 mg/dl (2.5-4.9); POTASSIUM 4.2 mmol/L (3.5-5.1)
[2016-11-29 07:56] VITALS: BP 124/71; PULSE 79; TEMP 36.6; O2SAT 96
[2016-11-29 08:00] VITALS: O2SAT 96
[2016-11-29] MEDS: TRIAMCINOLONE ACET NASAL SPRAY 10.8ML BTL NAE SCH (08:21)
[2016-11-29] MEDS: FEXOFENADINE HCL 60 MG TAB PO SCH (08:21)
[2016-11-29] MEDS: GUAIFENESIN 600 MG TABCR PO SCH (08:22)
[2016-11-29] MEDS: BENZONATATE 100MG CAP PO SCH (08:22)
[2016-11-29] MEDS: METOPROLOL TARTRATE 25 MG TAB PO SCH (08:22)
[2016-11-29] MEDS: PANTOprazole SOD 40 MG TAB PO SCH (08:23)
[2016-11-29] MEDS: HEPARIN SOD 5000 UNIT/0.5 ML CARP SQ SCH (08:24)
--- NOTE | 2016-11-29 10:49 | DIAGNOSTIC IMAGING REPORT ---
RIGHT UPPER EXTREMITY VENOUS DOPPLER ULTRASOUND CLINICAL HISTORY: Superficial phlebitis right antecubital fossa. COMPARISON STUDY: No previous studies for comparison. TECHNIQUE: Sonography of the venous system of the right upper extremity was performed. FINDINGS: The right internal jugular, subclavian, axillary, brachial, basilic, radial and ulnar veins are patent. There is occlusive thrombus within the median cubital vein. This represents superficial thrombophlebitis. IMPRESSION: 1. Thrombus within the right median cubital vein consistent with superficial thrombophlebitis. 2. No deep venous thrombus within the right upper extremity. Electronically signed by: Adin Greene M.D. 11/29/2016 10:48 AM Dictated Date/Time: 11/29/2016 10:46 AM
[2016-11-29] MEDS ORDERED: CEFU500T16 PO (11:07)
[2016-11-29] MEDS ORDERED: OMEP40CA41 PO (11:07)
[2016-11-29] MEDS ORDERED: ASPI325T39 PO (11:07)
[2016-11-29 11:47] VITALS: BP 123/79; PULSE 96; TEMP 36.4; O2SAT 97
[2016-11-29 11:57] VITALS: BP 124/71; PULSE 79; TEMP 36.6; O2SAT 96
--- NOTE | 2016-11-30 11:10 | Discharge Summary ---
Discharge Summary Date of Service November 30, 2016. Discharge Summary Admission Date: November 27, 2016 at 16:59 Discharge Date: November 29, 2016 Discharge Disposition: Home Principal Diagnosis: atrial tachycardia Problems/Secondary Diagnoses: 1. acute sinusitis 2. acute right arm superficial thrombophlebitis 3. e. coli UTI Procedures: 1. RUE venous doppler - IMPRESSION: 1. Thrombus within the right median cubital vein consistent with superficial thrombophlebitis. 2. No deep venous thrombus within the right upper extremity. 2. CTA chest negative for PE, pneumonia, or other pathology. 3. Echocardiogram - * -- Conclusions -- * There is mild asymmetric left ventricular hypertrophy. * Left ventricular systolic function is normal. EF 50-55%. * Grade I diastolic dysfunction, (abnormal relaxation pattern). * The left atrium is mildly dilated. Consultations: cardiology - Jim Freitas MD Medication Reconciliation New Medications: Aspirin (Aspirin Ec) 325 Mg Tab 325 MG PO BID for 7 Days, #14 TAB 0 Refills Cefuroxime Axetil (Ceftin) 500 Mg Tab 500 MG PO BID for 8 Days, #16 TAB 0 Refills Omeprazole (Prilosec) 40 Mg Cap 40 MG PO DAILY for 10 Days, #10 CAP 0 Refills Benzonatate (Benzonatate) 100 Mg Cap 100 MG PO TID PRN for Cough, #30 CAP 0 Refills Fexofenadine HCl (Fexofenadine HCl) 60 Mg Tab 60 MG PO BID, #30 TAB 0 Refills can purchase [id number] Guaifenesin Ext Rel (Mucinex Ext Rel) 600 Mg Tabcr 1200 MG PO Q12, #30 0 Refills can purchase [id number] Metoprolol Tartrate (Lopressor) 25 Mg Tab 25 MG PO BID, #60 TAB 2 Refills for your heart Saline ([place] Nasal [place]) 0.65 % Spr 2 SPRAYS NA Q1H PRN for nasal congestion, #1 Triamcinolone Acetonide (Nasal (Nasacort Allergy 24Hr) 55 Mcg/Act Spr 2 SPRAYS JANI DAILY, #1 1 Refill Referrals At Discharge Follow up Referrals: Assistant Real Estate Manager Referral - Within 2 Weeks with Jim Freitas MD Physician Referral - Please Call For Appointment with José Martinez D.O. Discharge Exam Physical Exam: General Appearance: no apparent distress ENT: pharynx normal Neck: no JVD Respiratory/Chest: lungs clear, no respiratory distress, no accessory muscle use Cardiovascular: regular rate, rhythm, no gallop, no murmur, normal peripheral pulses Abdomen / GI: normal bowel sounds, non tender, soft, no organomegaly Extremities: no pedal edema, + inflammation (right antecubital region - superficial thrombophlebitis ), + swelling (right antecubital region ) Neurologic/Psychiatric: alert, oriented x 3 Skin: + pertinent finding (mild swelling, scant erythema - right antecubital region) Hospital Course HISTORY OF PRESENT ILLNESS: The patient is a 76-year-old female with no significant past medical history who presented to her PCP's office with multiple complaints including worsening cough, postnasal drip, rib pain, mild shortness of breath, and palpitations. The patient had recently returned from [place] involved travel by plane and cruise ship. While in her PCP's office an EKG was obtained and there was concern for rapid a. fib. Therefore she was sent to the [facility] ER. While awaiting admission she had tachycardia with heart rates into the 130s. She was admitted due to concern of a. fib. HOSPITAL COURSE: 1. atrial tachycardia - the patient was admitted to the telemetry unit and her rapid heart rhythm was in fact atrial tachycardia. She also had frequent PVCs. No a. fib or flutter was identified. TSH and electrolytes were normal. She was seen in consult by Dr. Jim Freitas, [facility] Cardiology, who confirmed that her tachycardia was due to atrial tachycardia. Echocardiogram was completed showing normal EF and normal anatomy. Low-dose beta angelika was begun. She will follow-up with Dr. Freitas in the cardiology clinic. Outpatient monitoring will likely be arranged. 2. e. coli UTI - received 2 days of rocephin, and will then complete a course of oral ceftin (which is being employed for her sinusitis). 3. suspected acute sinusitis - CTA chest did not show signs of pneumonia or PE. She may have a component of acute bronchitis but her lung exam during her stay was entirely normal. She received rocephin while hospitalized and will complete 8 more days of ceftin at home. She was advised to use a combination of zackery, tessalon pearles, nasonex, nasal saline, and mucinex as needed for symptom control. O2 sats were normal her entire stay. 4. right arm superficial thrombophlebitis - on her last hospital day she developed this due to an IV site. There were no signs of any complicating cellulitis. RUE doppler did not show any DVT. She was advised to use warm compresses and to take aspirin twice daily for a week. She was also asked to follow-up with her PCP in 2-3 days to have the site rechecked. Total Time Spent: Greater than 30 minutes This includes examination of the patient, discharge planning, medication reconciliation, and communication with other providers. Discharge Instructions Please refer to the electronic Patient Visit Report (Discharge Instructions) for additional information. Follow-Up 1. see Dr. Martinez, [facility], within [address] Freitas, [facility], within 2 weeks Additional Copies To José Martinez D.O.; Jim Freitas MD
== END 2016-11-29 12:32 | disposition home or self-care (01) | DRG 309 ==
LOC: ENRESERVTM → ENRESERVDT → C.EDC 11:48 → C.2E 16:59
PROVIDERS: ADMIT Hospitalist; ATTEND Internal Medicine
DX: I47.1 Supraventricular tachycardia (principal); N39.0 Urinary tract infection, site not specified; J01.90 Acute sinusitis, unspecified; R07.81 Pleurodynia; B96.20 Unspecified Escherichia coli [E. coli] as the cause of diseases classified elsewhere; I80.8 Phlebitis and thrombophlebitis of other sites